=== PATIENT | male | born 1965 | race Caucasian/White ===

== ENCOUNTER 2017-08-10 22:23 | Inpatient (IN) ==
[2017-08-10] MEDS ORDERED: NS 1,000 ML IV ONE (22:50)
[2017-08-10] MEDS ORDERED: ZOFRAN IV ONE (23:21)
[2017-08-10 23:33] LABS: MANUAL DIFF NEEDED? NO
[2017-08-10 23:35] LABS: BASO% 0.3 % (0.0-0.8); EOS# 0.13 X1000 (0.0-0.7); EOS% 1.3 % (0.0-10.0); HEMATOCRIT 41.6 % (42.0-52.0); HEMOGLOBIN 14.9 g/dL (14.0-18.0); IMM GRAN# 0.12 X1000 (0.0-0.04); IMM GRAN% 1.2 % (0.0-0.5); LYMPH# 1.44 X1000 (1.2-3.4); LYMPH% 14.2 % (20.5-51.1); MCH 32.2 PG (27-31); MCHC 35.8 g/dL (33-37); MCV 89.8 FL (81-99); MONO# 0.95 X1000 (0.11-0.59); MONO% 9.4 % (1.7-9.3); MPV 8.6 FL (7.4-10.4); NEUT% 73.6 % (42.2-75.2); PLT 480 X1000 (130-400); RBC 4.63 XMIL (4.7-6.1)
[2017-08-11] MEDS ORDERED: SODIUM CHLORIDE 0.9% INJ ONE (00:08)
[2017-08-11] MEDS ORDERED: PHENERGAN IV ONE (00:08)
[2017-08-11 00:25] LABS: AGAP 22; ALBUMIN 3.9 g/dL (3.5-5.0); ALKALINE PHOSPHATASE 71 U/L (32-122); AMYLASE 125 U/L (20-200); BUN 16 mg/dL (8-22); CALCIUM 9.2 mg/dL (8.8-10.2); CHLORIDE 98 mmol/L (98-107); COSMO 270; GOT 17 U/L (10-34); GPT 32 U/L (10-44); LIPASE 132 U/L (13-60); POTASSIUM 3.6 mmol/L (3.5-5.1); SODIUM 135 mmol/L (136-145); TCO2 16 mmol/L (25-35); TOTAL PROTEIN 7.2 g/dL (6.3-8.3)
[2017-08-11] MEDS ORDERED: ATIVAN IV ONE ×2 (00:32→11:06)
[2017-08-11] MEDS: REGLAN IV SCH ×4 (01:32→18:04)
[2017-08-11] MEDS: ATIVAN IV PRN ×5 (06:41→23:49)
--- NOTE | 2017-08-11 07:14 | Diag Imaging Result Doc PS360 ---
FLAT/UPRIGHT ABD/1 VIEW CHEST - 08/10/2017 11:46 PM INDICATION: sbo TECHNIQUE: Three views COMPARISON: 7:04 AM FINDINGS: There is some linear atelectasis in the right midlung. No infiltrates in the chest. Heart size is normal. There is a high-grade small bowel obstruction similar to the recent prior exams. IMPRESSION: High-grade small bowel obstruction. Electronically signed by Marcelo Wan 08/11/2017 7:11 AM
[2017-08-11] MEDS: NS 1,000 ML IV SCH ×2 (10:08→22:58)
[2017-08-11] MEDS: SODIUM CHLORIDE 0.9% INJ PRN ×2 (10:09→16:07)
[2017-08-11] MEDS: PHENERGAN IV PRN ×4 (10:10→23:50)
[2017-08-11 12:42] LABS: BILIRUBIN URINE NEGATIVE (NEGATIVE); BLOOD URINE NEGATIVE (NEGATIVE); CLARITY CLEAR (CLEAR); COLOR YELLOW; GLUCOSE URINE NEGATIVE (NEGATIVE); LEUKOCYTES URINE NEGATIVE (NEGATIVE); NITRITE URINE NEGATIVE (NEGATIVE); PROTEIN URINE NEGATIVE (NEGATIVE); URINE CULTURE PL NEEDED? NO; URINE SOURCE CLEAN CATCH; UROBILINOGEN URINE NORMAL
[2017-08-11 13:00] LABS: URINE EPITHELIAL CELLS <10 /HPF (<10); URINE RBC <10 /HPF (<10); URINE WBC <10 /HPF (<10)
[2017-08-11] MEDS ORDERED: BENTYL IM PRN (17:07)
[2017-08-11] MEDS ORDERED: BLISTEX MEDICATED BERRY LIP BALM TOP PRN (19:10)
[2017-08-11] MEDS ORDERED: NORFLEX IV PRN (23:18)
[2017-08-11] MEDS ORDERED: NORFLEX IM PRN (23:18)
[2017-08-12] MEDS: REGLAN IV SCH ×4 (01:35→21:33)
[2017-08-12 06:25] LABS: MANUAL DIFF NEEDED? NO
[2017-08-12] MEDS: PHENERGAN IV PRN ×5 (06:28→23:17)
[2017-08-12] MEDS: ATIVAN IV PRN ×5 (06:28→23:16)
[2017-08-12 06:38] LABS: BASO% 0.2 % (0.0-0.8); EOS% 2.4 % (0.0-10.0); HEMATOCRIT 34.9 % (42.0-52.0); HEMOGLOBIN 12.2 g/dL (14.0-18.0); IMM GRAN# 0.18 X1000 (0.0-0.04); IMM GRAN% 1.4 % (0.0-0.5); LYMPH# 2.18 X1000 (1.2-3.4); LYMPH% 17.3 % (20.5-51.1); MCH 31.2 PG (27-31); MCV 89.3 FL (81-99); MONO# 0.94 X1000 (0.11-0.59); MONO% 7.4 % (1.7-9.3); MPV 8.7 FL (7.4-10.4); NEUT% 71.3 % (42.2-75.2); PLT 445 X1000 (130-400); RBC 3.91 XMIL (4.7-6.1)
--- NOTE | 2017-08-12 06:52 | Diag Imaging Result Doc PS360 ---
EXAM: FLAT/UPRIGHT ABD/1 VIEW CHEST HISTORY: possible bowel obstruction TECHNIQUE: Three views COMPARISON: 08/10/2017 FINDINGS: The lungs are well expanded. No pneumonia. No cardiomegaly. No free air beneath the diaphragm. The gallbladder has been removed. There is stool in the colon. There are fewer air-fluid levels and distended small bowel loops on the current exam. No organomegaly. No abnormal abdominal calcifications. The several pelvic phleboliths. IMPRESSION: Mild interval improvement. Electronically signed by Scotty Jiménez 08/12/2017 6:50 AM
[2017-08-12 06:56] LABS: AGAP 15; ALBUMIN 3.2 g/dL (3.5-5.0); ALKALINE PHOSPHATASE 55 U/L (32-122); BUN 11 mg/dL (8-22); CALCIUM 8.2 mg/dL (8.8-10.2); CHLORIDE 105 mmol/L (98-107); COSMO 271; GOT 18 U/L (10-34); GPT 21 U/L (10-44); POTASSIUM 3.2 mmol/L (3.5-5.1); SODIUM 137 mmol/L (136-145); TCO2 17 mmol/L (25-35); TOTAL PROTEIN 5.8 g/dL (6.3-8.3)
[2017-08-12] MEDS: GOLYTELY PO ONE ×2 (08:53→09:04)
[2017-08-12] MEDS: SODIUM CHLORIDE 0.9% INJ PRN ×3 (10:46→23:17)
[2017-08-12] MEDS: NS 1,000 ML IV SCH (12:00)
[2017-08-12] MEDS ORDERED: RELISTOR SUBQ ONE (13:05)
[2017-08-12] MEDS: CLINIMIX E 4.25%-5% SOLUTION 1,000 ML IV SCH (13:33)
[2017-08-12] MEDS: POTASSIUM CHLORIDE 20 MEQ/SWI 20 MEQ/100 ML IVPB IV SCH ×2 (17:14→23:10)
[2017-08-13] MEDS: REGLAN IV SCH ×3 (01:55→15:32)
[2017-08-13] MEDS: PHENERGAN IV PRN ×2 (02:27→06:21)
[2017-08-13] MEDS: SODIUM CHLORIDE 0.9% INJ PRN ×2 (02:28→06:22)
[2017-08-13] MEDS: ATIVAN IV PRN ×3 (02:28→11:30)
[2017-08-13 06:10] LABS: MANUAL DIFF NEEDED? NO
[2017-08-13 06:16] LABS: BASO% 0.2 % (0.0-0.8); EOS# 0.23 X1000 (0.0-0.7); EOS% 2.1 % (0.0-10.0); HEMATOCRIT 34.3 % (42.0-52.0); HEMOGLOBIN 12.1 g/dL (14.0-18.0); IMM GRAN# 0.15 X1000 (0.0-0.04); IMM GRAN% 1.3 % (0.0-0.5); LYMPH# 2.37 X1000 (1.2-3.4); LYMPH% 21.2 % (20.5-51.1); MCH 31.3 PG (27-31); MCHC 35.3 g/dL (33-37); MCV 88.6 FL (81-99); MONO# 0.73 X1000 (0.11-0.59); MONO% 6.5 % (1.7-9.3); MPV 8.6 FL (7.4-10.4); NEUT% 68.7 % (42.2-75.2); PLT 489 X1000 (130-400); RBC 3.87 XMIL (4.7-6.1)
[2017-08-13 06:42] LABS: AGAP 16; ALBUMIN 3.8 g/dL (3.5-5.0); ALKALINE PHOSPHATASE 58 U/L (32-122); BUN 8 mg/dL (8-22); CALCIUM 8.8 mg/dL (8.8-10.2); CHLORIDE 105 mmol/L (98-107); COSMO 274; GOT 19 U/L (10-34); GPT 19 U/L (10-44); POTASSIUM 3.6 mmol/L (3.5-5.1); SODIUM 139 mmol/L (136-145); TCO2 18 mmol/L (25-35); TOTAL PROTEIN 5.9 g/dL (6.3-8.3)
--- NOTE | 2017-08-13 07:01 | Diag Imaging Result Doc PS360 ---
EXAM: FLAT/UPRIGHT ABD/1 VIEW CHEST HISTORY: evaluate for obstruction TECHNIQUE: Three views COMPARISON: 08/12/2017 FINDINGS: The lungs are well expanded. The heart is not enlarged. No pneumonia. No free air beneath the diaphragm. There are distended small bowel loops with air-fluid levels. Stool is found throughout the colon. The gallbladder has been removed. No abnormal abdominal calcifications. IMPRESSION: Persistent, at least partial, small bowel obstruction with no interval improvement. Electronically signed by Scotty Jiménez 08/13/2017 6:58 AM
[2017-08-13] MEDS: CLINIMIX E 4.25%-5% SOLUTION 1,000 ML IV SCH (11:33)
[2017-08-13 12:32] VITALS: BP 124/90
--- NOTE | 2017-08-13 13:34 | Diag Imaging Result Doc PS360 ---
EXAM: KUB ABDOMEN HISTORY: sbo TECHNIQUE: Abdomen single view COMPARISON: 08/13/2017 at 6:45 AM FINDINGS: There are dilated small bowel loops in the midabdomen representing at least a partial small bowel obstruction. No organomegaly. No abnormal calcifications. There are surgical clips in the right upper quadrant. IMPRESSION: No interval improvement. Electronically signed by Scotty Jiménez 08/13/2017 1:32 PM
== END 2017-08-13 17:05 | disposition home or self-care (01) ==
LOC: P.ED 22:23 → P.MEDSURG 22:24 → SUATTDRO 22:24
PROVIDERS: ADMIT Family Medicine; ATTEND Family Medicine